=== PATIENT | male | born 1950 | race Caucasian/White ===

== ENCOUNTER 2023-06-11 09:48 | Emergency (ER) | payer OTHER, SELFPAY ==
[2023-06-11 09:56] VITALS: BP 126/78; PULSE 76; RESP 14; TEMP 36.9; O2SAT 98; BMI 29.7
--- NOTE | 2023-06-11 10:08 | DI.RAD.S_ITS ---
PROCEDURE: XR FEMUR RT MIN 2V INDICATIONS: fall on thinners (pradaxa) TECHNIQUE: 2 views of the femur were acquired. COMPARISON: None. FINDINGS: Bones: No acute fractures or dislocations. Healed fracture deformity of the distal humerus. Knee arthroplasty has been performed. No suspicious bony lesions. Soft tissues: No suspicious soft tissue calcifications or masses. IMPRESSION: No acute fracture. No osseous lesion. If symptoms and/or clinical suspicion for pathology persist, further assessment with repeat, or advanced imaging (e.g., CT, MRI, or bone scan) may be helpful for further assessment. Dictated by: Modesto Babcock M.D. on 06/11/2023 at 11:23 Approved by: Modesto Babcock M.D. on 06/11/2023 at 11:24
--- NOTE | 2023-06-11 10:08 | DI.RAD.S_ITS ---
PROCEDURE: XR HIP W PEL IF DONE RT 2V INDICATIONS: fall on thinners (pradaxa) TECHNIQUE: AP pelvis with lateral view(s) of the right hip(s). COMPARISON: None. FINDINGS: Bones: No fractures or dislocations. Pelvic ring appears intact. No suspicious bony lesions. Soft tissues: The visualized bowel gas pattern is normal. No suspicious soft tissue calcifications. IMPRESSION: No acute fracture. No osseous lesion. If symptoms and/or clinical suspicion for pathology persist, further assessment with repeat, or advanced imaging (e.g., CT, MRI, or bone scan) may be helpful for further assessment. Dictated by: Modesto Babcock M.D. on 06/11/2023 at 11:22 Approved by: Modesto Babcock M.D. on 06/11/2023 at 11:23
--- NOTE | 2023-06-11 10:08 | DI.CT.S_ITS ---
PROCEDURE: CT CERVICAL SPINE WO CON INDICATIONS: fall on thinners (pradaxa) TECHNIQUE: Noncontrast 3 mm thick sections acquired from the skull base to the T4 level. Sagittal and coronal reformats were then constructed. For radiation dose reduction, the following was used: automated exposure control, adjustment of mA and/or kV according to patient size. COMPARISON: None. FINDINGS: Image quality: Excellent. Bones: No fractures or dislocations. Visualized superior ribs are intact. Soft tissues: Prevertebral soft tissues are normal in thickness. No paravertebral hematomas. No apical pneumothoraces. IMPRESSION: No acute fracture. No osseous lesion. If symptoms and/or clinical suspicion for pathology persist, further assessment with MRI or bone scan may be helpful for further assessment. Dictated by: Modesto Babcock M.D. on 06/11/2023 at 10:26 Approved by: Modesto Babcock M.D. on 06/11/2023 at 10:27
--- NOTE | 2023-06-11 10:08 | DI.RAD.S_ITS ---
PROCEDURE: XR KNEE RT 3V INDICATIONS: fall on thinners (pradaxa) TECHNIQUE: 3 views of the knee were acquired. COMPARISON: None. FINDINGS: Bones: No fractures or dislocations. No suspicious bony lesions. Knee arthroplasty. Soft tissues: No joint effusion. No suspicious soft tissue calcifications. IMPRESSION: No acute fracture. No osseous lesion. If symptoms and/or clinical suspicion for pathology persist, further assessment with MRI or bone scan may be helpful for further assessment. Approved by: Modesto Babcock M.D. on 06/11/2023 at 11:22
--- NOTE | 2023-06-11 10:08 | DI.CT.S_ITS ---
PROCEDURE: CT HEAD/BRAIN WO CON INDICATIONS: fall on thinners (pradaxa) TECHNIQUE: Noncontrast 4.5 mm thick angled axial sections acquired from the foramen magnum to the vertex, with coronal and sagittal reformats. For radiation dose reduction, the following was used: automated exposure control, adjustment of mA and/or kV according to patient size. COMPARISON: None. FINDINGS: Image quality: Diagnostic. CSF spaces: Basal cisterns are patent. No extra-axial fluid collections. The ventricles are symmetric in size and shape. Brain: No intracranial bleeds or masses. There is cerebral volume loss for age, with resultant ventricular and sulcal prominence. There are periventricular and deep white matter chronic small vessel ischemic changes. There is intracranial internal carotid artery atherosclerosis. Skull and face: Calvarium and visualized facial bones appear intact, without suspicious lesions. Sinuses: Visualized sinuses and mastoids are clear. IMPRESSION: No acute intracranial pathology. Dictated by: Modesto Babcock M.D. on 06/11/2023 at 10:26 Approved by: Modesto Babcock M.D. on 06/11/2023 at 10:26
--- NOTE | 2023-06-11 11:47 | ED_ITS ---
HPI - Extremity Problem <Yohan Correa PA-C - Last Filed: 06/11/23 11:55> General Chief complaint: Extremity Problem,Nontraumatic Stated complaint: R/ leg pain/ leg isnt working Time Seen by Provider: 06/11/23 11:26 Source: patient Mode of arrival: Ambulatory History of Present Illness HPI Narrative: 73-year-old male with past medical history atrial fibrillation, diabetes, hyperlipidemia presents to the ED with several months of right-sided leg pain. Patient states that he walks a lot, walking his dogs, average is close to 10 miles of walking a day. Patient states over the last several months that every now and then, his right thigh muscles give out, causing him to fall. Patient's last fall was 5 days ago, when he was descending the stairs in his house, causing him to fall and strike his head. Patient denies LOC. Patient is on Pradaxa for the AFib. Patient has not yet seen his PCP for this leg pain. Patient denies numbness, tingling, weakness. Patient denies fever, chills, chest pain, shortness of breath. Patient describes the sensation as feeling like his upper right leg muscles just feel weak and gave out. Patient has bilateral knee replacements. Related Data Home Medications Medication Instructions Recorded Confirmed dabigatran etexilate 75 mg capsule 75 mg PO BID 06/11/23 06/11/23 (Pradaxa) Allergies Allergy/AdvReac Type Severity Reaction Status Date / Time No Known Drug Allergies Allergy Verified 06/11/23 10:03 Review of Systems <Yohan Correa PA-C - Last Filed: 06/11/23 11:55> Constitutional Constitutional: Denies chills, Denies fatigue, Denies fever(s), Denies frequent falls, Denies lethargy and Denies weakness Eyes Eyes: Denies change in vision, Denies eye discharge, Denies irritation and Denies loss of vision ENT Ears, Nose, Mouth, and Throat: Denies change in voice, Denies dizziness, Denies neck pain, Denies sore throat and Denies throat swelling Cardiovascular Cardiovascular: Denies chest pain, Denies irregular heart rhythm, Denies lightheadedness, Denies palpitations, Denies dyspnea, Denies dyspnea on exertion and Denies orthopnea Respiratory Respiratory: Denies cough, Denies dyspnea, Denies dyspnea on exertion and Denies wheezing Gastrointestinal Gastrointestinal: Denies abdominal pain, Denies change in bowel habits, Denies diarrhea, Denies nausea and Denies vomiting Musculoskeletal Musculoskeletal: Denies neck pain and Denies numbness Comments: Right leg pain Integumentary/Breasts Skin/Breast: Denies pruritus, Denies erythema, Denies rash and Denies wounds Neurologic Neurologic: Denies behavioral changes, Denies confusion, Denies dizziness, Denies frequent falls, Denies loss of vision, Denies numbness and Denies weakness Psychiatric Psychiatric: Denies anxiety, Denies behavioral changes, Denies confusion, Denies depression, Denies homicidal ideation and Denies suicidal ideation Endocrine Endocrine: Denies fatigue, Denies flushing and Denies palpitations Hematologic/Lymphatic Hematologic/Lymphatic: Denies easy bruising Allergic/Immunologic Allergic/Immunologic: Denies urticaria, Denies throat swelling and Denies wheezing Patient History <Yohan Correa PA-C - Last Filed: 06/11/23 11:55> Social History Smoking Status: Never smoker Smoking Status: Never smoker alcohol intake frequency: 0-2 drinks per day Substance Use Type: marijuana Exam <Yohan Correa PA-C - Last Filed: 06/11/23 11:55> Narrative Exam Narrative: Const General:?cooperative, healthy appearing and comfortable [facility] Head:?normal to inspection Ears:?hearing grossly normal bilaterally Nose:?external nose normal Face and sinus:?normal facial exam and sinuses nontender Mouth:?oral mucosae normal Throat:?posterior oropharynx normal Eyes General:?appearance normal, both eyes and all related structures Neck Neck:?normal visual inspection and no lymphadenopathy noted Resp Effort & Inspection:?normal respiratory effort Auscultation:?clear to auscultation bilaterally Cardio Rate:?regular rate Rhythm:?regular rhythm Musculoskeletal No swelling, tenderness to palpation, erythema of right leg. Gait is normal. Neurovascularly intact. Neuro General:?patient alert, patient awake and patient oriented x3 Initial Vital Signs Initial Vital Signs: Vital Signs Temperature 98.4 F 06/11/23 09:56 Pulse Rate 76 06/11/23 09:56 Respiratory Rate 14 06/11/23 09:56 Blood Pressure 126/78 06/11/23 09:56 Pulse Oximetry 98 06/11/23 09:56 Oxygen Delivery Method Room Air 06/11/23 09:56 <DO Tiburcio Ornelas Last Filed: 06/11/23 19:55> Initial Vital Signs Initial Vital Signs: Vital Signs Temperature 98.4 F 06/11/23 09:56 Pulse Rate 76 06/11/23 09:56 Respiratory Rate 14 06/11/23 09:56 Blood Pressure 126/78 06/11/23 09:56 Pulse Oximetry 98 06/11/23 09:56 Oxygen Delivery Method Room Air 06/11/23 09:56 Course <Yohan Correa PA-C - Last Filed: 06/11/23 11:55> Orders Ordered: ED Orders 06/11/23 10:08 CT cervical spine wo con Stat CT head/brain wo con Stat XR femur RT min 2V Stat XR hip w pel if done RT 2V Stat XR knee RT 3V Stat Vital Signs Vital signs: Vital Signs - 8 hr 06/11/23 11:55 Pulse Rate 89 Respiratory Rate 18 Blood Pressure 105/67 Pulse Oximetry 99 Oxygen Delivery Method Room Air <DO Tiburcio Ornelas Last Filed: 06/11/23 19:55> Orders Ordered: ED Orders 06/11/23 10:08 CT cervical spine wo con Stat CT head/brain wo con Stat XR femur RT min 2V Stat XR hip w pel if done RT 2V Stat XR knee RT 3V Stat Vital Signs Vital signs: Vital Signs - 8 hr 06/11/23 11:55 Pulse Rate 89 Respiratory Rate 18 Blood Pressure 105/67 Pulse Oximetry 99 Oxygen Delivery Method Room Air MDM - Extremity (Nontraumatic) <VIRA Hearn Last Filed: 06/11/23 11:55> MDM Narrative Medical decision making narrative: 73-year-old male with past medical history atrial fibrillation, diabetes, hyperlipidemia presents to the ED with several months of right-sided leg pain. Concern for intracranial bleeds versus fracture/dislocation versus musculoskeletal sprain/strain versus other. Obtained CT head, CT C-spine, x- rays of the right hip, knee, femur. All imaging was without acute findings. Discussed findings with patient. Patient agrees to follow-up with his PCP for further evaluation and treatment. Recommend Tylenol for pain control. Recommend trialing a brace for knee stability. Fall precautions discussed with patient. ED return precautions were discussed with patient. Patient verbalized understanding. Medical records reviewed: Yes Discharge Plan Departure Patient Disposition: Home Clinical Impression: Leg pain Qualifiers: Laterality: right Qualified Code(s): M79.604 - Pain in right leg Instructions: DI for Leg Pain Activity Restrictions/Additional Instructions: Were evaluated in the ED today for right-sided leg pain. The head CT, cervical spine CT, knee leg and hip x-rays were normal without any signs of bleeding, fractures or dislocations. It appears that your symptoms might be due to a musculoskeletal sprain/strain. You may take 1000 mg Tylenol every 8 hours for pain relief. You may also trial a knee brace to see if that prevents the knee from giving out. Please follow-up with your PCP as soon as possible for further evaluation. Return to the ED if you have worsening symptoms or you fall again and strike your head. Prescriptions: No Action dabigatran etexilate [Pradaxa] 75 mg Capsule 75 mg PO BID Referrals: Miscellaneous,Doctor, MD [Primary Care Provider] - Stand Alone Forms: Patient Portal/API ED Sign-out <Mayra Rodriguez DO - Last Filed: 06/11/23 19:55> Cosign ED Attending Tripp Attestation: I was immediately available in the department for consultation.
[2023-06-11 11:55] VITALS: BP 105/67; PULSE 89; RESP 18; O2SAT 99
== END 2023-06-11 11:56 | disposition home or self-care (01) ==
PROVIDERS: Emergency Provider Student in an Organized Health Care Education/Training Program
DX: M79.604 Pain in right leg (principal); Z79.01 Long term (current) use of anticoagulants; R29.6 Repeated falls
CPT/HCPCS: 70450; 72125; 73502; 73552; 73562; 99284